=== PATIENT | female | born 1970 | race African-American/Black ===

== ENCOUNTER 2018-06-01 12:27 | Emergency (ER) | payer OTHER ==
[2018-06-01 12:47] VITALS: BP 139/78; PULSE 86; TEMP 98.6; BMI 29.5
[2018-06-01] MEDS ORDERED: ALBUTEROL SO4 2.5/IPRATROPIUM 0.5 INH SOL 3 ML VIAL.NEB. NEB ONE ×3 (13:04→13:21)
[2018-06-01] MEDS ORDERED: IBUPROFEN 600 MG TABLET (FP) PO ONE ×2 (13:05→13:21)
--- NOTE | 2018-06-01 13:34 | PDOC ---
History of Present Illness - General Chief Complaint: Cold Symptoms Stated Complaint: FLU? Time Seen by Provider: 06/01/18 12:35 History Source: Patient Exam Limitations: No Limitations - History of Present Illness Initial Comments: 06/01/18 13:28 47-year-old female patient with no past medical history, works at [employer], presents with sore throat and shortness of breath. The patient reports that she has a sick contact with her granddaughter with URI symptoms. The patient reports feeling somewhat run down and then yesterday started no sore throat. This morning, patient woke up, she felt increasing some shortness of breath and maybe some wheezing. However, patient denied chest pains, fevers. Did report some chills yesterday. No nausea or vomiting or diaphoresis. Denies abdominal pain. Denies coughing. The patient was at work when she notices symptoms occurred so came to the ER for further evaluation. Past History - Past Medical History Allergies/Adverse Reactions: Allergies Allergy/AdvReac Type Severity Reaction Status Date / Time acetaminophen [From Percocet] Allergy Verified 06/01/18 13:03 oxycodone [From Percocet] Allergy Verified 06/01/18 13:03 Home Medications: Ambulatory Orders Albuterol Sulfate Inhaler - [Ventolin HFA Inhaler -] 2 puff IH Q4H PRN #1 inhaler 06/01/18 Ibuprofen 600 mg PO Q6H PRN #20 tablet 06/01/18 COPD: No - Suicide/Smoking/Psychosocial Hx Smoking History: Current some day smoker Have you smoked in the past 12 months: Yes Information on smoking cessation initiated: Yes Hx Alcohol Use: No Drug/Substance Use Hx: No Review of Systems - Review of Systems Able to Perform ROS?: Yes Comments:: 06/01/18 13:33 GENERAL/CONSTITUTIONAL: [No fever, No weakness. No weight change.] +occasional chills. HEAD, EYES, EARS, NOSE AND THROAT: [No change in vision. No ear pain or discharge. + sore throat.] CARDIOVASCULAR: [No chest pain], + shortness of breath.] RESPIRATORY: [No cough, wheezing, or hemoptysis.] GASTROINTESTINAL: [No nausea, vomiting, diarrhea or constipation. No rectal bleeding.] GENITOURINARY: [No dysuria, frequency, or change in urination.] MUSCULOSKELETAL: [No joint or muscle swelling or pain. No neck or back pain.] SKIN AND BREASTS: [No rash or easy bruising.] NEUROLOGIC: [No headache, vertigo, loss of consciousness, or loss of sensation.] PSYCHIATRIC: [No depression or anxiety.] ENDOCRINE: [No increased thirst. No abnormal weight change.] HEMATOLOGIC/LYMPHATIC: [No anemia, easy bleeding, or history of blood clots.] ALLERGIC/IMMUNOLOGIC: [No hives or skin allergy. No latex allergy.] *Physical Exam - Vital Signs Last Vital Signs Temp Pulse Resp BP Pulse Ox 98.6 F 86 20 139/78 100 06/01/18 12:28 06/01/18 12:28 06/01/18 12:28 06/01/18 12:28 06/01/18 12:28 - Physical Exam Comments: 06/01/18 13:34 GENERAL: Awake, alert, and fully oriented, in no acute distress HEAD: No signs of trauma EYES: PERRLA, EOMI, sclera anicteric, conjunctiva clear ENT: Auricles normal inspection, hearing grossly normal, nares patent, oropharynx clear without exudates. Moist mucosa NECK: Normal ROM, supple, LUNGS: Breath sounds equal, clear to auscultation bilaterally. No wheezes, and no crackles HEART: Regular rate and rhythm, normal S1 and S2, no murmurs, rubs or gallops ABDOMEN: Soft, nontender, No guarding, no rebound. No masses EXTREMITIES: Normal range of motion, no edema. No clubbing or cyanosis. No cords, erythema, or tenderness NEUROLOGICAL: Cranial nerves II through XII grossly intact. Normal speech, normal gait SKIN: Warm, Dry, normal turgor, no rashes or lesions noted. Moderate Sedation - Procedure Monitoring Vital Signs: Procedure Monitoring Vital Signs Temperature 98.6 F 06/01/18 12:28 Pulse Rate 86 06/01/18 12:28 Respiratory Rate 20 06/01/18 12:28 Blood Pressure 139/78 06/01/18 12:28 O2 Sat by Pulse Oximetry (%) 100 06/01/18 12:28 Heart Score/ECG Review #1 ECG reviewed & interpreted by me at: 13:20 06/01/18 13:35 NSR 81, no std/[place], normal axis, normal intervals, QTC 446 msec ED Treatment Course - RADIOLOGY Radiology Studies Ordered: Category Date Time Status CHEST X-RAY PORTABLE* [RAD] Stat Radiology 06/01/18 13:04 Ordered Medical Decision Making - Medical Decision Making 06/01/18 13:35 Vital Signs Temp Pulse Resp BP Pulse Ox 98.6 F 86 20 139/78 100 06/01/18 12:28 06/01/18 12:28 06/01/18 12:28 06/01/18 12:28 06/01/18 12:28 I suspect patient likely has viral syndrome. However, rule out pneumonia. We'll obtain an influenza and rapid strep. EKG is reassuring with no findings. We'll trial one DuoNeb and reassess. 06/01/18 14:23 ECG reassuring. Chest xray reviewed by me, pending official radiology read. No infiltrate. Rapid strep negative. Influenza swab pending, but given > 48 hours, tamiflu unlikely to be helpful. Pt reports significant relief with motrin and duoneb. Will treat as viral syndrome and d/c with motrin and albuterol. Supportive care. I discussed the physical exam findings, ancillary test results and final diagnoses with the patient. I answered all of the patient's questions. The patient was satisfied with the care received and felt comfortable with the discharge plan and treatment plan. The patient will call their primary care physician within 24 hours to arrange follow-up and will return to the Emergency Department with any new, persistant or worsening symptoms. *DC/Admit/Observation/Transfer Diagnosis at time of Disposition: Viral syndrome - Discharge Dispostion Disposition: HOME Condition at time of disposition: Good Decision to Admit order: No - Prescriptions Prescriptions: Albuterol Sulfate Inhaler - [Ventolin HFA Inhaler -] 2 puff IH Q4H PRN #1 inhaler PRN Reason: Cough Ibuprofen 600 mg PO Q6H PRN #20 tablet PRN Reason: Pain/Fever - Referrals - Patient Instructions Printed Discharge Instructions: DI for Viral Upper Respiratory Infection -- Adult Additional Instructions: Your influenza and rapid strep test is negative. Your EKG is normal. Your preliminary chest xray is negative for pneumonia. We suspect that you have a viral syndrome. It may take several days before you feel better. For pain/fever, take 600 mg ibuprofen every 6 hours as needed. For difficulty breathing, take 2 puffs of albuterol every 4 hours as needed. Please follow up with your doctor. - Post Discharge Activity Forms/Work/School Notes: Back to Work
--- NOTE | 2018-06-02 10:06 | EKG ---
Test Reason : Blood Pressure : / mmHG Vent. Rate : 081 BPM Atrial Rate : 081 BPM P-R Int : 150 ms QRS Dur : 086 ms QT Int : 384 ms P-R-T Axes : 062 042 024 degrees QTc Int : 446 ms NORMAL SINUS RHYTHM NORMAL ECG NO PREVIOUS ECGS AVAILABLE Confirmed by Lebron Ramirez MD ([id number]) on 06/02/2018 10:05:49 AM Referred By: STEVEN HARP Confirmed By:Lebron Ramirez MD
== END 2018-06-01 14:37 | disposition home or self-care (01) ==
LOC: FER 12:27
PROC: 3E0F7GC Introduction of Other Therapeutic Substance into Respiratory Tract, Via Natural or Artificial Opening (ICD-10-PCS; principal; 2018-06-01)
DX: B34.9 Viral infection, unspecified (principal); F17.210 Nicotine dependence, cigarettes, uncomplicated
CPT/HCPCS: 71045-TC-FY; 87070; 87804; 87880; 93005; 99283-25